=== PATIENT | male | born 1995 | race African-American/Black ===

== ENCOUNTER 2020-08-19 20:47 | Inpatient (IN) ==
[2020-08-19] MEDS ORDERED: MAGNESIUM SULF RIDER 2 GM in PREMIX 1 EACH IV STA (20:59)
[2020-08-19] MEDS ORDERED: ALBUTEROL NEB SOLN 5 MG/ML 20 ML/BOTTLE CONT NEB STA (20:59)
[2020-08-19] MEDS ORDERED: methylPREDNISolone SOD SUC 125 MG/2 ML VIAL IV STA (20:59)
[2020-08-19] MEDS ORDERED: LORazepam 2 MG/1 ML VIAL IV STA ×2 (21:00→22:25)
[2020-08-19 21:09] VITALS: BP 120/67
[2020-08-19 21:25] LABS: Basophils # 0.1 10*3/uL (0.0-0.2); Basophils % 0.9 % (0.0-0.8); Hematocrit 46.2 VOL% (42.0-52.0); Hemoglobin 14.4 GM/DL (14.0-18.0); Immature Granulocytes % 0.4 %; Immature Granulocytes Absolute 0.02 #; Lymphocytes # 0.9 10*3/uL (1.4-4.0); Lymphocytes % 16.1 % (21.2-54.2); Mean Corpuscular HGB Conc 31.2 GM/DL (32-36); Mean Corpuscular Volume 73.8 FL (87-102); Mean Platelet Volume 9.7 FL (9.6-12.0); Monocytes % 3.7 % (1.7-12.7); Neutrophils % 78.9 % (38.7-73.9); Platelet Count 135 T/CUMM (130-400); Red Blood Count 6.26 MC/CUMM (3.8-5.5); Red Cell Distribution Width 18.2 % (9.3-17.3); White Blood Count 5.7 T/CUMM (4-12)
[2020-08-19 21:37] LABS: PT Patient Result 20.3 SECS (9.8-11.9)
[2020-08-19 21:38] LABS: Partial Thromboplastin Time 77.4 SECS (23.9-33.8)
[2020-08-19 22:23] LABS: Osmolality,Calculated 262.9 MOS/KG (273-304)
[2020-08-19 22:40] LABS: Band Neutrophils 24 % (0-10); Lymphocytes 13 % (20-55); Segmented Neutrophils 60 % (50-85); Total Cells Counted 100
[2020-08-19 22:41] LABS: Burr Cells 2+; Microcytosis 1+; Platelet Estimate Adequate
[2020-08-19 23:01] LABS: ABG Base Excess -12.5 MMOL/L (-2.5-2.5); ABG HCO3 14.7 MMOL/L (20-26); ABG Oxygen Saturation 87.7 % (95-100); ABG PCO2 31.4 MM HG (35-48); ABG PH 7.251 (7.35-7.45); ABG PO2 67.5 MM HG (80-95); ABG TCO2 12.2 MMOL/L (23-27)
[2020-08-19] MEDS ORDERED: DILTIAZEM 50 MG/10 ML VIAL IV STA (23:41)
[2020-08-19] MEDS ORDERED: LEVOFLOXACIN INJ 500 MG in PREMIX 1 EACH IV STA (23:47)
[2020-08-19] MEDS ORDERED: PIPERACILLIN/TAZOBACTAM 3,375 MG in SODIUM CHLORIDE 0.9% 100 ML IV STA (23:47)
[2020-08-19] MEDS ORDERED: SODIUM CHLORIDE 0.9% 1,000 ML IV STA (23:55)
[2020-08-20] MEDS ORDERED: ONDANSETRON 4 MG/2 ML VIAL IV PRN (00:57)
[2020-08-20] MEDS ORDERED: ALBUTEROL 2.5 MG/3 ML NEB RESP TX PRN (00:57)
[2020-08-20] MEDS ORDERED: ACETAMINOPHEN 325 MG TABLET PO PRN (00:57)
[2020-08-20] MEDS ORDERED: LACTATED RINGERS 1,000 ML IV SCH (01:00)
[2020-08-20] MEDS ORDERED: ENOXAPARIN 40 MG/0.4 ML SYRINGE SUBCUT SCH (01:00)
[2020-08-20] MEDS ORDERED: ROCURONIUM 100 MG/10 ML VIAL IV ONE (01:38)
[2020-08-20] MEDS ORDERED: ETOMIDATE 20 MG/10 ML VIAL IV ONE (01:38)
[2020-08-20] MEDS ORDERED: DOPamine 800 MG/250 ML PREMIX IV ONE (01:49)
[2020-08-20] MEDS ORDERED: MEROPENEM 500 MG in SODIUM CHLORIDE 0.9% 100 ML IV SCH (03:00)
[2020-08-20] MEDS ORDERED: PANTOPRAZOLE 40 MG TABLET PO SCH (09:00)
[2020-08-20] MEDS ORDERED: LEVOFLOXACIN INJ 750 MG in PREMIX 1 EACH IV SCH (12:00)
== END 2020-08-20 02:05 | disposition expired | DRG 208 ==
LOC: EDBD → EDUNIT# → N.ED 20:47 → N.EDINP 23:59
PROVIDERS: ADMIT Internal Medicine; ATTEND Internal Medicine